=== PATIENT | female | born 1950 | race Caucasian/White ===

== ENCOUNTER → 2016-12-08 | Outpatient (CLI) | payer OTHER ==
[~2016-12-08] MED LIST: CALCCAP PO; CINN500C7 PO; ESTR0.5T9 PO; FEXO180 PO; MOTR200T PO; PROG1CAP20 PO; TAB-TAB PO; [UNRECOGNIZED DRUG - REMARK] PO
== END ==
LOC: CLAB 08:01
PROVIDERS: ATTEND Specialist
DX: B18.9 Chronic viral hepatitis, unspecified (principal); E78.4 Other hyperlipidemia; Z79.899 Other long term (current) drug therapy
CPT/HCPCS: 36415; 82140